=== PATIENT | male | born 1980 | race Two or more races ===

== ENCOUNTER 2024-05-28 18:48 | Emergency (ER) | payer BC, SELFPAY ==
[2024-05-28 18:52] VITALS: BP 140/91
[2024-05-28] MEDS: ADACEL 0.5 ML IM (20:19)
--- NOTE | 2024-05-28 23:04 | ED.SKININJ ---
HPI-Injury
General
Chief Complaint: Skin Surface Trauma
Source: patient
Exam Limitations: none
Time Seen by Provider: 05/28/24 20:02
Nursing documentation reviewed up to this point in time: agreed with
History of Present Illness-Injury
Is this injury a work related problem?: No
Is pt an associate of [facility]/[place]?: No
Initial Injury comments:
Accdentally cut self with a utility knife. He has a small superficial laceration to his abdomen. Injury occurred just [employer]
Past History
Past History
ED Past Medical History: None
Review of Systems
Review of Systems
Allergies reviewed?: Yes
All Other Systems: ROS reviewed and negative except as documented in HPI and ROS
Constitutional: Reports no symptoms
Skin: Reports other (superficial laceration to abdomen)
Neurological: Reports no symptoms
Psychiatric: Reports no symptoms
Skin Exam
Laceration
Middle Abdomen:
Length in cm: 0.5
Type of Laceration: simple
Any active bleeding?: no active bleeding
Distal skin color and temperature: normal-warm & good color
Normal distal neurovascular exam: Yes
Range of motion: full
Phy Exam
General Physical Exam
General Presentation: well appearing and no apparent distress
General age: appears stated age
General Skin: warm
General Habitus: normal
General Mental: alert
Gastrointestinal Exam
Gastrointestinal Exam: non tender, soft, no organomegaly and non distended
Skin Exam
Skin Exam: normal color, warm/dry, no rash and other (small superfical laceration to abdomen. NO depth.)
Psychiatric Exam
Psychiatric Exam: normal mood/affect
Course
Orders/Labs/Results
Orders:
Orders
05/28/24 20:09
Tetanus/Diphth/Acelpertussis [Adacel] 0.5 ml IM .ONCE ONE
Vital Signs
Initial and Last Documented VS:
Initial Vital Signs
Temp Pulse Resp BP Pulse Ox
98.1 F 100 18 140/91 100
05/28/24 18:52 05/28/24 18:52 05/28/24 18:52 05/28/24 18:52 05/28/24 18:52
Last Documented Vital Signs
Temp Pulse Resp BP Pulse Ox
98.1 F 100 18 140/91 100
05/28/24 18:52 05/28/24 18:52 05/28/24 18:52 05/28/24 18:52 05/28/24 18:52
Procedures
Laceration Closure
Middle Abdomen:
Description of Wound Edges: sharp
Preparation: cleaned with saline
Revision/Debridement: routine- no revision
Wound exploration: explored to base- no FB
Type of Closure: Dermabond-skin glue
*Critical Care Note
Total Time (30-74mins, 75-104mins- exclusive of procedures): Not Applicable
ED Attending Note
-
Portions of this chart may have been created with voice recognition software.� Occasional wrong word or��sound alike� substitutions may have occurred due to the inherent limitations of voice recognition software.
Discharge Plan
Departure
Patient Disposition: Home (Routine Discharge)
Date of Disposition: 05/28/24
Time of Disposition: 20:10
Patient with high blood pressure during this ER visit?: No
Condition: Good
Covid-19: Not Applicable
Discharge Problem:
Laceration of abdomen
Instructions: Laceration Repair With Glue (DC)
Activity Restrictions/Additional Instructions:
Follow up with your family doctor
Interventions
Interventions:
*Risk Screen - Suicide Last Done: 05/28/24 20:05
*General Assessment Last Done: 05/28/24 20:05
*Neglect/Abuse Screening Last Done: 05/28/24 20:05
ED- Fall Risk Assessment Last Done: 05/28/24 20:20
*ED COVID-19 Vaccine History Last Done: 05/28/24 20:05
*Nursing Disposition Last Done: 05/28/24 20:34
ED-Skin Assessment Last Done: 05/28/24 20:05
Discharge Date and Time
Discharge Date/Time: 05/28/24 20:35
Print Language: AMERICAN
== END 2024-05-28 20:35 | disposition home or self-care (01) ==
LOC: EMR 18:48
PROVIDERS: EMERGENCY PHYSICIAN Emergency Medicine; FAMILY PHYSICIAN Nurse Practitioner Family
DX: S31.119A Laceration without foreign body of abdominal wall, unspecified quadrant without penetration into peritoneal cavity, initial encounter (principal); W26.0XXA Contact with knife, initial encounter; Z23 Encounter for immunization
CPT/HCPCS: 99282; 12001; 90471; 90715

== ENCOUNTER 2025-05-02 12:49 | Emergency (ER) | payer BC, SELFPAY ==
[2025-05-02 13:09] VITALS: BMI 27.1
[2025-05-02] MEDS: NSS 1000 IV (13:36)
[2025-05-02] MEDS: TORADOL 15 MG IV (13:37)
[2025-05-02 13:56] LABS: Hematocrit 41.4 % (39.0-52.0); Hemoglobin 13.6 g/dL (13.0-18.0); Mean Corp Hgb Conc. 32.9 g/dL (33.0-37.0); Mean Corpuscular Volume 83.8 fL (80.0-94.0); Nucleated Red Blood Cells % 0 % (-); Platelet Count 240 10^3/uL (130-400); Red Cell Dist. Width 12.6 % (11.5-14.5)
[2025-05-02 14:00] VITALS: BP 122/79
[2025-05-02 14:07] LABS: Urine Character Clear (Clear)
[2025-05-02 14:10] LABS: ALT (SGPT) 39 U/L (0-50); AST (SGOT) 28 U/L (17-59); Albumin 4.6 g/dl (3.5-5.0); Alkaline Phosphatase 109 U/L (38-126); Blood Urea Nitrogen 15 mg/dl (9-20); Calcium 9.9 mg/dl (8.4-10.2); Carbon Dioxide 29 mmol/L (22-30); Chloride 106 mmol/L (98-107); Estimated Creatinine Clearance 86 ml/min; Glucose 140 mg/dl (70-99); Lipase 51 U/L (23-300); Potassium 4.4 mmol/L (3.5-5.1); Sodium 139 mmol/L (135-145); Total Protein 7.7 g/dl (6.3-8.2); eGFR > 60.00
[2025-05-02 15:00] VITALS: BP 120/86
--- NOTE | 2025-05-02 15:33 | ED.GENMED ---
History of Present Illness
General
Chief Complaint: Abdominal Symptoms
Source: patient
Exam Limitations: none
Time Seen by Provider: 05/02/25 13:23
Nursing documentation reviewed up to this point in time: agreed with
History of Present Illness
History of Present Illness:
Patient is a 44-year-old healthy male who presents to the emergency department with left sided abdominal pain which began this morning around 8 AM when he woke up. Patient describes a sharp, constant pain in his left mid abdomen radiating into his
left lower abdomen. Patient also reports intermittent nausea/vomiting since pain onset earlier today. He describes pain as sharp and stabbing, 10/10 in severity.
Patient does note that he has had some difficult urinating this morning describing it similar to urinary hesitancy. He has not had any dysuria or obvious hematuria. No fever, chills. No diarrhea/constipation
Patient denies any history of similar symptoms or any recent inciting trauma/injury. He denies any chest pain or shortness of breath.
Past History
Past History
ED Past Medical History: None
Review of Systems
Review of Systems
Allergies reviewed?: Yes
All Other Systems: ROS reviewed and negative except as documented in HPI and ROS
Phy Exam
Physical Exam
Physical Exam:
Vitals: Patient's vital signs are stable. Afebrile
General: Patient is moderately uncomfortable due to pain. Nontoxic appearing
Skin: Warm and dry, no rashes or lesions
Head: Normocephalic, atraumatic
Eyes: Sclera nonicteric.
Throat: Protecting airway
Neck: Normal ROM, no cervical spine tenderness, no meningismus
Cardiac: Regular rate and rhythm, no murmurs.
Pulm: Normal respiratory effort, no wheezes, rales, rhonchi heard on exam
Abdomen: Abdomen soft. Minimal tenderness in left lower abdomen without rebound tenderness or guarding. No CVA tenderness or rash
Extremities: No evidence of cyanosis or edema. 2+ palpable DP pulses bilaterally
Neuro: AAOx3. Grossly intact
Psychiatric: Normal affect.
Course
Orders/Labs/Results
Orders:
Orders
05/02/25 13:09
CMP [Comprehensive Metabolic Panel] Urgent
Complete Blood Count/With Diff Urgent
Lipase Urgent
Comment: ADD ON
05/02/25 13:29
Add On- LAB Urgent
Tests Added?: Lipase
0.9% Sodium Chloride 1000 ml [Nss] 1,000 ml IV BOLUS
05/02/25 13:32
Ketorolac [Toradol] 15 mg IV NOW STA
05/02/25 13:40
Urinalysis Reflex To Culture Urgent
Date Specimen was Collected: 05/02/25
Time Specimen was Collected: 13:39
05/02/25 14:40
CT Abd/pelvis W Iv Cont Urgent
Comment:
Reason For Exam: Left flank pain, N/V
05/02/25 17:47
Tamsulosin [Flomax] 0.4 mg PO NOW STA
Abnormal Lab Results
05/02/25 05/02/25
13:09 13:40
WBC 11.1 H 10^3/uL
(4.8-10.8)
MCHC 32.9 L g/dL
(33.0-37.0)
MPV 10.8 H fL
(7.4-10.4)
Absolute Neuts (auto) 9.2 H 10^3/uL
(1.4-6.5)
Neutrophils % 83.5 H %
(42.2-75.2)
Lymphocytes % 10.8 L %
(20.5-51.1)
Glucose 140 H mg/dl
(70-99)
Urine Ketones 1+ A
(Negative)
05/02/25 13:09
05/02/25 13:09
Vital Signs
Initial and Last Documented VS:
Initial Vital Signs
Temp Pulse Resp Pulse Ox
97.8 F 85 16 100
05/02/25 12:54 05/02/25 12:54 05/02/25 12:54 05/02/25 12:54
Last Documented Vital Signs
Temp Pulse Resp BP Pulse Ox
98.1 F 100 16 141/84 100
05/02/25 18:10 05/02/25 18:00 05/02/25 17:45 05/02/25 18:00 05/02/25 18:00
MDM/Problems Addressed
Differential Diagnosis Includes:
Not limited to: Renal colic, cystitis, pyelonephritis, diverticulitis, muscle strain,
MDM/Problems Addressed:
44-year-old male presenting with acute onset left flank/lower abdominal pain this morning associated with nausea / vomiting. Vitals and physical exam as above. Patient very uncomfortable due to pain, although appears nontoxic. Abdomen soft with mild
reproducible tenderness in left mid abdomen. No rebound tenderness or guarding. Differentials include renal colic, diverticulitis, gastroenteritis, musculoskeletal pain, etc. ED plan: check labs, UA, CT scan abdomen/pelvis. Will treat pain and give
IV fluids.
Update: labs reviewed which reveal mild leukocytosis of 11.1. chemistry unremarkable. Urine with no evidence of infection or RBCs. On reassessment � patient reports almost complete improvement in pain following dose of toradol. CT scan pending.
Update: CT scan shows a 2.5 mm stone within the posterior aspect of the urinary bladder near UVJ with left sided perinephric stranding. No other acute findings.
Given significant improvement in pain I suspect patient likely passed stone into bladder while in emergency department. There is no evidence of infection or renal insufficiency today. He is afebrile with normal vital signs. His pain is under
control. Ultimately � feel stable for discharge home w/ outpatient urology follow up. Will provide pain control, Flomax, advise patient to strain urine and stay well hydrated. Very close return precautions discussed including intractable pain or any
signs of infection.
Chronic conditions affecting care:
N/A
Acute Exacerbation and/or Progression of Chronic Illness:
N/A
*Radiology
Radiology exam reviewed: radiology read reviewed
*Pulse Oximetry
SaO2: 99
Oxygen Mode of Delivery: Room air
Patient hypoxic: no
*EKG
Interpreted by ED Provider?: NA
*Sexer Interpretation
Rate: normal
Interpretation: normal
Heart Rate: 98
Rhythm: sinus
*Critical Care Note
Total Time (30-74mins, 75-104mins- exclusive of procedures): Not Applicable
ED Attending Note
-
Portions of this chart may have been created with voice recognition software.� Occasional wrong word or��sound alike� substitutions may have occurred due to the inherent limitations of voice recognition software.
Discharge Plan
Departure
Patient Disposition: Home (Routine Discharge)
Date of Disposition: 05/02/25
Time of Disposition: 17:47
Patient with high blood pressure during this ER visit?: Yes
Condition: Good
Covid-19: Not Applicable
Discharge Problem:
Renal colic on left side
Instructions: Kidney stones in adults - ED discharge instructions, BLOOD PRESSURE
Prescriptions:
New
ondansetron 4 mg tablet,disintegrating
4 mg PO Q8H PRN (Reason: nausea and vomiting) Qty: 7 0RF
ibuprofen 600 mg tablet
600 mg PO Q6H PRN (Reason: Pain) Qty: 7 0RF
tamsulosin [Flomax] 0.4 mg capsule
0.4 mg PO DAILY Qty: 14 0RF
oxycodone 5 mg tablet
5 mg PO Q8H PRN (Reason: Pain) Qty: 5 0RF
Referrals:
Denise Devine CRNP [Family Provider, Family Practice]
Seth Salgado MD [Active, Urology] - Call in 1-3 days for appt
Activity Restrictions/Additional Instructions:
RETURN TO THE EMERGENCY DEPARTMENT WITH ANY FEVER, CHILLS, INTRACTABLE PAIN, INTRACTABLE NAUSEA/VOMITING, WORSENING OF CURRENT SYMPTOMS, OR ANY OTHER CONCERNS
- As discussed�your CT scan showed a 2.5 mm stone within the bladder. I suspect you likely passed the stone earlier today.
- You should continue to take ibuprofen 600 mg every 6-8 hours as needed for pain. A prescription has been sent to your pharmacy. For intractable pain�you can take oxycodone. This may cause drowsiness and you should not take prior to driving.
Reviewed Zofran and Flomax as, as well.
- It is important stay well-hydrated. You should strain your urine.
- Please follow-up with urology for further evaluation/management and to ensure that your symptoms improve.
Monitor your symptoms closely and return to the emergency department w/ any acute worsening/new symptoms or any other concerns
Interventions
Interventions:
*Risk Screen - Suicide Last Done: 05/02/25 12:54
*General Assessment Last Done: 05/02/25 13:10
*Neglect/Abuse Screening Last Done: 05/02/25 12:54
*ED- Fall Risk Assessment Last Done: 05/02/25 13:10
*ED COVID-19 Vaccine History Last Done: 05/02/25 13:10
*Nursing Disposition Last Done: 05/02/25 18:26
ES-Wixtox-Xjygmkoptk Assessment Last Done: 05/02/25 13:11
Discharge Date and Time
Discharge Date/Time: 05/02/25 18:27
Print Language: SYRIAN
[2025-05-02 16:02] VITALS: BP 145/92
[2025-05-02 18:00] VITALS: BP 141/84
[2025-05-02] MEDS: FLOMAX 0.4 MG PO (18:10)
== END 2025-05-02 18:27 | disposition home or self-care (01) ==
LOC: EMR 12:49
PROVIDERS: Emergency Medicine; Physician Assistant; EMERGENCY PHYSICIAN Emergency Medicine; FAMILY PHYSICIAN Nurse Practitioner Family
DX: N23 Unspecified renal colic (principal)
CPT/HCPCS: 99284; 96374; 96361; 74177; 80053; 81003; 83690; 85025; Q9967